=== PATIENT | male | born 1960 | race Hispanic/Latino ===

== ENCOUNTER 2020-12-02 06:09 | Emergency (ER) | payer SELFPAY ==
--- NOTE | 2020-12-02 06:34 | Emergency Department Report ---
ED CPR HPI - General Chief Complaint: Cardiac Arrest/CPR Stated Complaint: CARDIAC ARREST Time Seen by Provider: 12/02/20 06:30 Source: EMS (Verbal report received from emergency medical services. EMS documentation not available at time of chart dictation ), RN notes reviewed Mode of arrival: Stretcher Limitations: Altered Mental Status, Physical Limitation - History of Present Illness Initial Comments: The patient was evaluated in the emergency department for symptoms described in the history of present illness. He/she was evaluated in the context of the global COVID-19 pandemic, which necessitated consideration that the patient might be at risk for infection with the virus that causes COVID-19. Institutional protocols and algorithms that pertain to the evaluation of patients at risk for COVID-19 are in a state of rapid change based on information released by regulatory bodies including the CDC and federal and state organizations. These policies and algorithms were followed during the patient's care in the emergency department. Please note that these policies, procedures and recommendations changed on a rapid basis. The patient is a 60-year-old gentleman. He is brought to the hospital by EMS as an out of hospital nontraumatic cardiac arrest. History obtained entirely from EMS. The patient arrives intubated, with a GCS of 3T, receiving active CPR. EMS reports the patient was last seen normal at 5:00 this morning. They then report the patient was found by family or friend, on the floor, and was not breathing. 911 was activated. EMS further states that bystanders did not start CPR. Upon initial EMS evaluation, the patient is pulseless, and ventricular tachycardia. EMS reports the patient is defibrillated multiple times. They report that the patient received amiodarone x1, and multiple rounds of epinephrine. EMS continues high-quality CPR, and standard ACLS interventions. Upon arrival to this emergency room, the patient is found to be in pulseless electrical activity. By the time the patient arrived to this emergency room, he had been pulseless for 50 minutes. As per EMS collateral information, he has never had a pulse, and has not demonstrated any signs of life. In the emergency room, pupils are midpoint, do not react to light, and he is found to have conjunctival hemorrhages. He is also found to be cyanotic diffusely. CPR was continued. Standard ACLS interventions are continued. Unfortunately, pulses could not be obtained, and resuscitative efforts were subsequently terminated secondary to prolonged downtime and medical futility. At this point in time, this patient is not accompanied by friends or family. Complaint: found unresponsive -: hour(s) Place: home Bystander CPR Performed: No AED Applied by Bystander/Pulmonary Specialist: No Initial Findings in the Field: unresponsive, no pulse, VTACH/VFIB ROSC in the Field: No Associated Injuries: No Treatments Prior to Arrival: intubation, chest compressions, defribrillated shocks #, epinephrine mgs #, amiodarone ED Review of Systems ROS: Stated complaint: CARDIAC ARREST Other details as noted in HPI Comment: Unobtainable due to pts medical conditions ED Physical Exam - General Limitations: Altered Mental Status, Physical Limitation General appearance: obtunded - Head Head exam: Present: atraumatic, normocephalic - Eye Eye exam: Present: other (Pupils do not react to light. Conjunctival hemorrhages noted). Absent: normal appearance - ENT ENT exam: Present: normal exam, mucous membranes moist, normal external ear exam (Endotracheal tube is noted in the oropharynx) - Neck Neck exam: Present: normal inspection - Respiratory Respiratory exam: Present: other (Patient is not breathing) - Cardiovascular Cardiovascular Exam: Present: other (The patient is pulseless) - GI/Abdominal GI/Abdominal exam: Present: soft - Rectal Rectal exam: Present: deferred - Extremities Exam Extremities exam: Present: normal inspection - Back Exam Back exam: Present: normal inspection - Neurological Exam Neurological exam: Present: altered (GCS of 3T) - Psychiatric Psychiatric exam: Present: other (The patient is not verbal) - Skin Skin exam: Present: cyanosis ED Medical Decision Making - Medical Decision Making Differential diagnosis, including but not limited to: Acute coronary syndrome, pulmonary embolism, intracranial hemorrhage Critical care attestation.: If time is entered above; I have spent that time in minutes in the direct care of this critically ill patient, excluding procedure time. ED Disposition Clinical Impression: Cardiac arrest Disposition: 20 Is pt being admited?: No Does the pt Need Aspirin: No Condition: Undetermined Referrals: PRIMARY CARE, [Primary Care Provider] - 3-5 Days
[2020-12-02] MEDS ORDERED: EPINEPHrine 1 MG/10 ML SYRINGE ONE (13:32)
== END 2020-12-02 13:00 ==
LOC: ED 06:09
DX: I46.9 Cardiac arrest, cause unspecified (principal)
CPT/HCPCS: 92950; 99285; J0171